=== PATIENT | male | born 1990 | race African-American/Black ===

== ENCOUNTER 2020-03-20 20:26 | Emergency (ER) | payer SELFPAY ==
--- NOTE | 2020-03-20 22:37 | ER ---
Nurse's Notes [facility] Name: Nishant Morton Age: 29 yrs Sex: Male : 1990 Arrival Date: 03/20/2020 Time: 20:28 Bed External Waiting Private MD: Diagnosis: Presentation: 03/20 20:38 Chief complaint: Patient states: Punched a window 15 min [employer]. Deep R FA laceration. ll1 Smaller just above. Pressure dressing applied. Coronavirus screen: Client denies travel out of the [place] in the last 14 days. At this time, the client does not indicate any symptoms associated with coronavirus-19. Ebola Screen: Patient denies travel to an Ebola-affected area in the 21 days before illness onset. Complicating Factors: Glass or an other foreign body is present in the wound. Initial Sepsis Screen: Does the patient meet any 2 criteria? No. Patient's initial sepsis screen is negative. Does the patient have a suspected source of infection? Yes: Skin breakdown/wound. Risk Assessment: Do you want to hurt yourself or someone else? Patient reports no desire to harm self or others. Onset of symptoms was March 20, 2020. 20:38 Method Of Arrival: Ambulatory ll1 20:38 Acuity: [id number] 3 ll1 Historical: - Allergies: 20:43 No Known Allergies; ll1 - PMHx: 20:43 None; ll1 - PSHx: 20:43 None; ll1 - Immunization history:: Last tetanus immunization: up to date Flu vaccine is not up to date. - Social history:: Smoking status: Patient reports the use of cigarette tobacco products, smokes one pack cigarettes per day. Vital Signs: 20:38 BP 111 / 88; Pulse 75; Resp 17; Temp 98.4; Pulse Ox 99% ; Weight 102.06 kg; Height 5 ll1 ft. 10 in. (177.80 cm); Pain 1/10; 20:38 Body Mass Index 32.28 (102.06 kg, 177.80 cm) ll1 ED Course: 20:28 Patient arrived in ED. es 20:43 Triage completed. ll1 20:43 Arm band placed on. ll1 Administered Medications: No medications were administered Outcome: 22:37 Patient left the ED. sg Signatures: Cassius Flores RN RN Pushpa Bowman Lynsay, LILLIAM RN ll1
[2020-03-20 22:54] VITALS: BP 111/88; TEMP 98.4; O2SAT 99
== END 2020-03-20 22:37 | disposition left against medical advice (07) ==
LOC: ER 20:26
DX: Z53.21 Procedure and treatment not carried out due to patient leaving prior to being seen by health care provider (principal)
CPT/HCPCS: 99281